=== PATIENT | male | born 1970 | race Caucasian/White ===

== ENCOUNTER → 2016-06-24 | Outpatient (CLI) | payer OTHER ==
[~2016-06-24] MED LIST: BUTACAP10 PO; CETI10TA84 PO; CHOL100041 PO; KPP/1000 PO; LAMO200T38 PO; LEVE500T13 PO; LPT/20 PO; MULT-506 PO; SERT-234 PO; ZLF/100 PO; [UNRECOGNIZED DRUG - CODE] UT
== END | disposition home or self-care (01) ==
LOC: C.LABBFT 12:49
PROVIDERS: ATTEND Psychiatry & Neurology Neurology
DX: G40.909 Epilepsy, unspecified, not intractable, without status epilepticus (principal)

== ENCOUNTER → 2016-09-02 | Outpatient (CLI) | payer OTHER ==
[2016-09-02 17:32] LABS: BASO % 0.5 %; BASO ABS # 0.03 K/uL (0-0.2); COMPLETE YES; EOS % 2.3 %; HEMATOCRIT 44.5 % (42-52); IG% 0.5 %; LYMPH ABS # 1.23 K/uL (1.2-3.4); MEAN CELL VOLUME 86.4 fL (80-100); MEAN CORPUSCULAR HEMOGLOBIN 29.5 pg (25-34); MEAN CORPUSCULAR HGB CONC 34.2 g/dl (32-36); MEAN PLATELET VOLUME 9.9 fL (7.4-10.4); NEUT % 64.7 %; PLATELET COUNT 276 K/uL (130-400); RED BLOOD COUNT 5.15 M/uL (4.7-6.1); WHITE BLOOD COUNT 5.59 K/uL (4.8-10.8)
[2016-09-02 17:46] LABS: ALT/SGPT 29 U/L (12-78); BLOOD UREA NITROGEN 17 mg/dl (7-18); BUN/CREATININE RATIO 19.7 (10-20); CARBON DIOXIDE 31 mmol/L (21-32); CHLORIDE 101 mmol/L (98-107); CHOLESTEROL 207 mg/dl (0-200); CREATININE 0.88 mg/dl (0.60-1.40); GLUCOSE 77 mg/dl (70-99); SODIUM 140 mmol/L (136-145)
[2016-09-02 17:57] LABS: ALB/GLOB RATIO 1.3 (0.9-2); ALKALINE PHOSPHATASE 53 U/L (45-117); AST/SGOT 15 U/L (15-37); CHOLESTEROL/HDL RATIO 4.6; HDL CHOLESTEROL 45 mg/dl; LDL CHOLESTEROL CALCULATED 133 mg/dl; TRIGLYCERIDES 144 mg/dl (0-150); VERY LOW DENSITY LIPOPROT CALC 29 mg/dl
== END | disposition home or self-care (01) ==
LOC: C.LABBFT 11:25
PROVIDERS: ATTEND Physician Assistant
DX: R42 Dizziness and giddiness (principal); E78.5 Hyperlipidemia, unspecified; R26.9 Unspecified abnormalities of gait and mobility; Z51.81 Encounter for therapeutic drug level monitoring; Z79.899 Other long term (current) drug therapy

== ENCOUNTER 2016-11-01 18:35 | Emergency (ER) | payer OTHER ==
[~2016-11-01] VITALS: Ht 177.8 cm; Wt 95.5 kg
[~2016-11-01 18:35] MED LIST changes: -CHOL100041 PO; -LEVE500T13 PO; -SERT-234 PO
[2016-11-01 18:44] VITALS: TEMP 36.8; Ht 177.8 cm; Wt 95.5 kg
[2016-11-01 19:36] VITALS: O2SAT 97
[2016-11-01] MEDS ORDERED: KPP/1000 PO (19:54)
[2016-11-01] MEDS ORDERED: SERT-234 PO (19:56)
[2016-11-01] MEDS ORDERED: LAMO200T38 PO (19:57)
[2016-11-01 20:24] LABS: BASO % 0.1 %; BASO ABS # 0.01 K/uL (0-0.2); COMPLETE YES; EOS % 0.2 %; HEMATOCRIT 43.8 % (42-52); IG% 0.3 %; LYMPH % 8.1 %; LYMPH ABS # 1.19 K/uL (1.2-3.4); MEAN CELL VOLUME 86.2 fL (80-100); MEAN CORPUSCULAR HEMOGLOBIN 29.7 pg (25-34); MEAN CORPUSCULAR HGB CONC 34.5 g/dl (32-36); MEAN PLATELET VOLUME 9.6 fL (7.4-10.4); MONO % 6.3 %; PLATELET COUNT 332 K/uL (130-400); RED BLOOD COUNT 5.08 M/uL (4.7-6.1); WHITE BLOOD COUNT 14.66 K/uL (4.8-10.8)
[2016-11-01 20:32] LABS: INR 1.1 (0.9-1.1); PARTIAL THROMBOPLASTIN RATIO 1.2; PROTHROMBIN TIME (PATIENT) 11.3 SECONDS (9.0-12.0)
[2016-11-01 20:36] LABS: BUN/CREATININE RATIO 12.9 (10-20); CALCIUM 9.2 mg/dl (8.5-10.1); CREATININE 0.93 mg/dl (0.60-1.40)
--- NOTE | 2016-11-01 21:06 | DIAGNOSTIC IMAGING REPORT ---
HEAD CT NONCONTRAST CT DOSE: 687.98 mGy.cm HISTORY: Mental status change SEIZURE TECHNIQUE: Multiaxial CT images of the head were performed without the use of intravenous contrast. Comparison: 04/15/2016 Findings: The paranasal sinuses and mastoid air cells are clear. Findings of a prior right-sided craniotomy are again noted. This is unchanged from the prior exam. Findings of an old right cerebral infarct are again noted. Dystrophic calcifications are stable. There is slight compensatory midline shift to the right. This is unchanged. There is no evidence for new interval or acute finding. There is no evidence for acute intracranial hemorrhage. Impression: Chronic and postoperative change. No acute process. Electronically signed by: Isaiah Earl M.D. 11/01/2016 9:05 PM Dictated Date/Time: 11/01/2016 9:02 PM
[2016-11-01] MEDS ORDERED: LEVETIRACETAM 500 MG TAB PO STA (21:33)
[2016-11-01 22:12] VITALS: BP 135/88; PULSE 82; O2SAT 94
--- NOTE | 2016-11-02 01:42 | EMERGENCY ROOM VISIT NOTE ---
History Report prepared by Giacomo: Jacquelyn Lopez Under the Supervision of: Dr. Gregorio Juarez M.D. First contact with patient: 18:53 Chief Complaint: HEAD INJURY (MINOR) Stated Complaint: 2 SEIZURES LASTNIGHT,SCALP WOUND History of Present Illness The patient is a 45 year old male who presents to the Emergency Room with complaints of multiple seizures starting yesterday evening. Yesterday around 1900 he had his first seizure. The seizure was witnessed by his brother and [id number] and lasted around 2 minutes. They found him on the ground. One hour later, he had another seizure which was longer. His second seizure was around 1999. He has not come back to baseline since then, but he is improving. He does not feel as alert as usual. The patient has no memory of the time between the 2 seizures. The patient believes he might have had a 3rd seizure this morning while he was in bed. He also fell twice today. He was found around 10 seconds after he fell the first time at which time he was not seizing. He injured the back of his head. He fell again later in the day while trying to put on his shoe. The patient reports that his thinking feels slow. He feels fatigued and has a headache. He has a cut on the back of his head. He denies any neck pain, increased unilateral weakness, vomiting, diarrhea, urinary symptoms, chest pain, or SOB. He is unsure if he has a fever. He has a history of seizures and is on Keppra and Lamictal. He denies any missed doses. He denies any recent changes in medications. He did have the levels checked 2 months ago which was normal. He does not have a history of status epilepticus. He has a history of hemorrhagic stroke. He has left sided weakness as a result. He walks with a cane. Source of History: patient, family Onset: yesterday evening Position: other (global) Quality: other (seizure) Timing: other (multiple) Associated Symptoms: + headache, + fatigue, No neck pain, No chest pain, No vomiting, No diarrhea, No urinary symptoms Note: Pt feels thinking is slow. Pt denies increased weakness. Review of Systems See HPI for pertinent positives & negatives. A total of 10 systems reviewed and were otherwise negative. Past Medical & Surgical Medical Problems: (1) Abscess (2) AVM (arteriovenous malformation) brain (3) ICH (intracerebral hemorrhage) (4) Rib fractures (5) Seizure disorder (6) Status post gamma knife treatment (7) Stroke Family History Cancer Diabetes mellitus Gallbladder disease Heart disease Hypertension Kidney disease Kidney stones Lung disease Seizures Social History Smoking Status: Never Smoker Alcohol Use: none Drug Use: none Marital Status: single Housing Status: lives with family Occupation Status: disabled Current/Historical Medications Scheduled Atorvastatin (Atorvastatin Calcium), 20 MG PO DAILY Cetirizine (Zyrtec), 10 MG PO QAM Lamotrigine (Lamictal), 400 MG PO BID Levetiracetam (Keppra), 1,500 MG PO BID Multivitamin (Multivitamin), 1 TAB PO DAILY Sertraline (Zoloft), 100 MG PO QAM Scheduled PRN Vuqsiavgoj-Fqzfjdofezqip-Zsgne (Esgic 325/50/40MG), 1-2 CAP PO Q4H PRN for Severe Headache Clonazepam (Clonazepam Odt), 0.5 MG UT UD PRN for Seizure Allergies Coded Allergies: No Known Allergies (Unverified , 04/15/16) Physical Exam Vital Signs Date Time Temp Pulse Resp B/P (MAP) Pulse Ox O2 Delivery O2 Flow Rate FiO2 11/01/16 22:12 82 20 135/88 94 Room Air 11/01/16 21:55 77 16 90 11/01/16 21:50 76 11/01/16 21:50 77 18 94 11/01/16 21:45 82 13 98 11/01/16 21:40 82 16 93 11/01/16 21:35 77 14 98 11/01/16 21:30 72 13 95 11/01/16 21:25 77 17 98 11/01/16 21:20 78 18 94 11/01/16 21:15 82 13 11/01/16 21:10 73 14 98 11/01/16 21:05 74 15 95 11/01/16 21:00 76 21 98 11/01/16 20:56 114/77 11/01/16 20:10 82 19 11/01/16 20:05 81 17 11/01/16 20:00 81 15 11/01/16 19:55 83 15 11/01/16 19:50 86 16 11/01/16 19:45 87 18 11/01/16 19:40 84 16 11/01/16 19:36 97 Room Air 11/01/16 19:34 84 11/01/16 18:44 36.8 89 16 125/77 96 Room Air Physical Exam Constitutional: Vital signs reviewed. Eyes: Disconjugate gaze. Pupils are equal round reactive to light. Conjunctiva are noninjected. ENT: Pharynx is clear without erythema or exudate. Mucous membranes are moist. Neck supple without meningeal signs. No midline tenderness to the cervical spine. Respiratory: Clear to auscultation bilaterally. Breath sounds are equal bilaterally. Cardiovascular: Regular rate and rhythm. No rubs or gallops. GI: Soft, nondistended and nontender. Bowel sounds are present. Musculoskeletal: No peripheral edema. No lower extremity tenderness. Integumentary: No cyanosis. 3 cm nonlinear scalp laceration to the occiput. Neurological: The patient is awake and alert. 3/5 strength in left upper extremity, 4/5 strength in left lower extremity, 5/5 on right side. Sensation is intact to light touch all extremities. Left facial weakness. Normal speech. GCS of 14. Psychiatric: Normal affect. Medical Decision & Procedures ER Provider Diagnostic Interpretation: Radiology results as stated below per my review and the radiologist's interpretation: HEAD CT NONCONTRAST CT DOSE: 687.98 mGy.cm HISTORY: Mental status change SEIZURE TECHNIQUE: Multiaxial CT images of the head were performed without the use of intravenous contrast. Comparison: 04/15/2016 Findings: The paranasal sinuses and mastoid air cells are clear. Findings of a prior right-sided craniotomy are again noted. This is unchanged from the prior exam. Findings of an old right cerebral infarct are again noted. Dystrophic calcifications are stable. There is slight compensatory midline shift to the right. This is unchanged. There is no evidence for new interval or acute finding. There is no evidence for acute intracranial hemorrhage. Impression: Chronic and postoperative change. No acute process. Electronically signed by: Isaiah Earl M.D. 11/01/2016 9:05 PM Dictated Date/Time: 11/01/2016 9:02 PM Laboratory Results 11/01/16 20:10 Red Blood Count 5.08, Mean Corpuscular Volume 86.2, Mean Corpuscular Hemoglobin 29.7, Mean Corpuscular Hemoglobin Concent 34.5, Mean Platelet Volume 9.6, Neutrophils (%) (Auto) 85.0, Lymphocytes (%) (Auto) 8.1, Monocytes (%) (Auto) 6.3, Eosinophils (%) (Auto) 0.2, Basophils (%) (Auto) 0.1, Neutrophils # (Auto) 12.45, Lymphocytes # (Auto) 1.19, Monocytes # (Auto) 0.93, Eosinophils # (Auto) 0.03, Basophils # (Auto) 0.01 11/01/16 20:10 Test 11/01/16 20:10 White Blood Count 14.66 K/uL (4.8-10.8) Red Blood Count 5.08 M/uL (4.7-6.1) Hemoglobin 15.1 g/dL (14.0-18.0) Hematocrit 43.8 % (42-52) Mean Corpuscular Volume 86.2 fL (80-100) Mean Corpuscular Hemoglobin 29.7 pg (25-34) Mean Corpuscular Hemoglobin Concent 34.5 g/dl (32-36) Platelet Count 332 K/uL (130-400) Mean Platelet Volume 9.6 fL (7.4-10.4) Neutrophils (%) (Auto) 85.0 % Lymphocytes (%) (Auto) 8.1 % Monocytes (%) (Auto) 6.3 % Eosinophils (%) (Auto) 0.2 % Basophils (%) (Auto) 0.1 % Neutrophils # (Auto) 12.45 K/uL (1.4-6.5) Lymphocytes # (Auto) 1.19 K/uL (1.2-3.4) Monocytes # (Auto) 0.93 K/uL (0.11-0.59) Eosinophils # (Auto) 0.03 K/uL (0-0.5) Basophils # (Auto) 0.01 K/uL (0-0.2) RDW Standard Deviation 41.2 fL (36.4-46.3) RDW Coefficient of Variation 13.1 % (11.5-14.5) Immature Granulocyte % (Auto) 0.3 % Immature Granulocyte # (Auto) 0.05 K/uL (0.00-0.02) Prothrombin Time 11.3 SECONDS (9.0-12.0) Prothromb Time International Ratio 1.1 (0.9-1.1) Activated Partial Thromboplast Time 31.6 SECONDS (21.0-31.0) Partial Thromboplastin Ratio 1.2 Anion Gap 8.0 mmol/L (3-11) Est Creatinine Clear Calc Drug Dose 117.6 ml/min Estimated GFR () 115.3 Estimated GFR (Non- 99.5 BUN/Creatinine Ratio 12.9 (10-20) Calcium Level 9.2 mg/dl (8.5-10.1) Laboratory results as reviewed by me. Medications Administered Medications (Trade) Dose Ordered Sig/Karen Route Start Time Stop Time Status Last Admin Dose Admin Levetiracetam (Keppra Tab) 2,000 mg ONE STAT PO 11/01/16 21:33 11/01/16 21:35 DC 11/01/16 22:07 2,000 MG Lamotrigine (Lamictal Tab) 400 mg NOW STAT PO 11/01/16 21:33 11/01/16 21:35 DC 11/01/16 22:07 400 MG ED Course 1855: The patient was evaluated in room C1. A complete history and physical exam was performed. 2112: I reevaluated the patient. The wound in very superficial and requires no sutures. 2126: I discussed the patient's case with Dr. Casanova, [facility] [place] - neurology. She recommends increasing Keppra dose to 2000 BID. She does not feel admission is necessary at this time unless the patient is far from baseline. The decision can be left up to the patient and his family. 2130: I reevaluated the patient. The brother and [id number] say that the patient has almost returned to baseline over the time he was here. He is rapidly improving. They are all comfortable with going home. I discussed the results and treatment plan with them. They verbalized understanding and agreement. He will be given his medications today as he has not yet taken them. He will follow up with Dr. Mays and his PCP. He will be discharged home. 2132: Lamotrigine 400 mg PO, Levetiracetam 2000 mg PO. Medical Decision This is a 45-year-old male who presents with multiple seizures. Differential diagnosis includes breakthrough seizures, status epilepticus, intracranial hemorrhage, metabolic derangement, medication non-compliance, skull fracture. I did perform a limited focused review of portions of the patient's old chart on the electronic medical record. The patient overdosed in March 2016 on Fioricet and Tylenol. He has a history of AVM s/p surgery, CVA, seizure, and migraines. He had therapeutic Keppra and Lamictal levels on September 02. Medication Reconciliation: I attest that I have personally reviewed the patient' s current medication list. Blood Pressure Screening: Patient was found to have an elevated blood pressure and was referred to their primary doctor for recheck and further treatment. I did evaluate the patient as noted above. I did obtain history from the patient as well as his brother and [id number]. The patient is presenting with 2 breakthrough seizures yesterday. He also possibly had a seizure disorder and fell later in the day while trying to put his shoes on. He did have a head injury and has a laceration to the back of his head. The laceration is very superficial and does not require suturing. IV access was established. The patient was placed on a continuous rate examiner. I did order and review the patient's blood work as noted in the electronic medical record. His white blood cell count is elevated but he did have seizures recently. He denies any fever. I did order a CT of the head. I did review the images myself as well as the radiology report as described above. There is no evidence of intracranial hemorrhage or acute process. I did discuss the test results with the patient and his family. I did discuss the case with Dr. Cassidy of neurology. She recommended increasing his Keppra to 2000 mg twice a day. She felt that the patient felt comfortable that he does not require any hospitalization. I did discussed the plan with the patient and his family. I feel that he is almost back at his baseline at this time and he feels well enough to go home. He was given Keppra 2000 mg here as well as his Lamictal dose. He will follow up with his doctor and neurologist. Consults Time Called: 2123 Consulting Physician: Dr. Casanova, [facility] [place] - neurology Returned Call: [phone] I discussed the patient's case with her. She recommends increasing Keppra dose to 2000 BID. She does not feel admission is necessary at this time unless the patient is far from baseline. The decision can be left up to the patient and his family. Impression Primary Impression: Seizures Additional Impression: Acute head injury Scribe Attestation The scribe's documentation has been prepared under my direct and personally reviewed by me in its entirety. I confirm that the note above accurately reflects all work, treatment, procedures, and medical decision making performed by me. Departure Information Dispostion Home / Self-Care Referrals RV. Lopez MD (PCP) Forms HOME CARE DOCUMENTATION FORM, IMPORTANT VISIT INFORMATION Patient Instructions ED Head Injury Closed, My [facility], Seizures - [facility] Additional Instructions You have been examined and treated today on an emergency basis only. This is not a substitute for, or an effort to provide, complete comprehensive medical care. It is impossible to recognize and treat all injuries or illnesses in a single emergency department visit. It is therefore important that you follow up closely with your physician and neurologist. Call as soon as possible for an appointment. Return for worsening symptoms or if you develop fever, vomiting, new numbness or weakness on one side of your body, difficulties with your speech , or any other concerning symptoms. Increase your Lamictal to 2000 mg twice a day Problem Qualifiers Additional Impression: Acute head injury Encounter type: initial encounter Qualified Codes: S09.90XA - Unspecified injury of head, initial encounter
[2016-11-22] MEDS ORDERED: CETI10TA84 PO (11:47)
[2016-11-22] MEDS ORDERED: LEVE500T13 PO (11:51)
[2016-11-22] MEDS ORDERED: CHOL100041 PO (11:51)
[2016-11-22] MEDS ORDERED: ZLF/100 PO (11:51)
[2016-11-22] MEDS ORDERED: [UNRECOGNIZED DRUG - CODE] UT (11:51)
[2016-11-22] MEDS ORDERED: LPT/20 PO (11:51)
[2016-11-22] MEDS ORDERED: LAMO200T38 PO (11:51)
[2016-11-22] MEDS ORDERED: MULT-506 PO (11:51)
== END 2016-11-01 22:30 | disposition home or self-care (01) ==
LOC: C.EDB 18:36 → C.EDC 22:30
DX: G40.909 Epilepsy, unspecified, not intractable, without status epilepticus (principal); S01.01XA Laceration without foreign body of scalp, initial encounter; W19.XXXA Unspecified fall, initial encounter; I69.354 Hemiplegia and hemiparesis following cerebral infarction affecting left non-dominant side; Z80.9 Family history of malignant neoplasm, unspecified; Z83.3 Family history of diabetes mellitus; Z82.49 Family history of ischemic heart disease and other diseases of the circulatory system; Z84.1 Family history of disorders of kidney and ureter; Z82.0 Family history of epilepsy and other diseases of the nervous system; Z79.899 Other long term (current) drug therapy

== ENCOUNTER 2016-11-06 13:08 | Inpatient (IN) | payer OTHER ==
[~2016-11-06] VITALS: Ht 177.8 cm; Wt 95.5 kg
[~2016-11-06 13:08] MED LIST changes: +SERT-234 PO; -ZLF/100 PO
[2016-11-06 14:07] LABS: BASO % 0.4 %; BASO ABS # 0.03 K/uL (0-0.2); COMPLETE YES; EOS % 1.2 %; HEMATOCRIT 44.4 % (42-52); IG% 0.6 %; LYMPH % 14.7 %; LYMPH ABS # 1.24 K/uL (1.2-3.4); MEAN CELL VOLUME 86.7 fL (80-100); MEAN CORPUSCULAR HEMOGLOBIN 30.1 pg (25-34); MEAN CORPUSCULAR HGB CONC 34.7 g/dl (32-36); MEAN PLATELET VOLUME 9.5 fL (7.4-10.4); MONO % 8.3 %; NEUT % 74.8 %; PLATELET COUNT 311 K/uL (130-400); RED BLOOD COUNT 5.12 M/uL (4.7-6.1); WHITE BLOOD COUNT 8.43 K/uL (4.8-10.8)
[2016-11-06] MEDS ORDERED: CHOL100041 PO (14:21)
[2016-11-06 14:26] LABS: ALT/SGPT 51 U/L (12-78); AST/SGOT 33 U/L (15-37); BLOOD UREA NITROGEN 14 mg/dl (7-18); BUN/CREATININE RATIO 15.2 (10-20); CALCIUM 9.4 mg/dl (8.5-10.1); CARBON DIOXIDE 29 mmol/L (21-32); CHLORIDE 105 mmol/L (98-107); CREATININE 0.89 mg/dl (0.60-1.40); GLUCOSE 101 mg/dl (70-99); POTASSIUM 4.1 mmol/L (3.5-5.1); SODIUM 144 mmol/L (136-145)
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
[2016-11-06 14:36] LABS: ALB/GLOB RATIO 1.1 (0.9-2); ALKALINE PHOSPHATASE 53 U/L (45-117)
[2016-11-06 14:39] LABS: ACETAMINOPHEN < 2 ug/ml (10-30)
--- NOTE | 2016-11-06 14:53 | DIAGNOSTIC IMAGING REPORT ---
CT OF THE HEAD WITHOUT CONTRAST CLINICAL HISTORY: Posterior head injury. Headache. COMPARISON STUDY: Head CT November 01, 2016. CT DOSE: 698.73 mGy.cm TECHNIQUE: Helical axial images of the head were obtained without IV contrast. Automated exposure control was utilized for the study. FINDINGS: Note is again made of a right-sided temporoparietal craniotomy. Postoperative appearance is unchanged. Extensive encephalomalacia within the right MCA territory with multifocal parenchymal calcifications remains unchanged. There is volume loss as expected. Ventricular system is stable. Basilar cisterns are patent. There are no extra-axial collections. There are no findings to suggest acute dural sinus thrombosis or acute territorial infarct. The appearance of the brain is unchanged. There is no calvarial fracture. Visualized portions of the sinuses and mastoid air cells are clear. IMPRESSION: 1. No acute intracranial findings. 2. No change since prior exam status post right temporoparietal craniotomy with large right MCA territory infarct and associated parenchymal calcifications. Electronically signed by: Ghassan Rangel M.D. 11/06/2016 2:52 PM Dictated Date/Time: 11/06/2016 2:47 PM
[2016-11-06 15:18] LABS: URINE APPEARANCE CLEAR (CLEAR); URINE COLOR DK YELLOW; URINE EPITHELIAL CELL AUTO 20-30 /lpf (0-5); URINE NITRITE NEG (NEG); URINE PH 5.5 (4.5-7.5); URINE SPECIFIC GRAVITY 1.039 (1.000-1.030); UROBILINOGEN NEG (NEG); ZZUR CULT IF INDIC CLEAN CATCH NO
[2016-11-06 15:31] LABS: MANUAL MICROSCOPIC REQUIRED? NO; REVIEW REQ? NO
[2016-11-06 15:32] LABS: URINE BILIRUBIN NEG (NEG)
[2016-11-06 15:36] LABS: BENZODIAZEPINE, URINE POS (NEG); COCAINE,URINE NEG (NEG); PHENCYCLIDINE, URINE NEG (NEG)
[2016-11-06] MEDS ORDERED: ATORVASTATIN 20 MG TAB PO ONE (18:00)
[2016-11-06] MEDS ORDERED: LEVETIRACETAM 500 MG TAB PO ONE (18:00)
[2016-11-07] MEDS ORDERED: ACETAMINOPHEN 500 MG TAB PO STA (00:24)
[2016-11-07] MEDS ORDERED: CLONAZEPAM 0.5 MG TAB PO STA (00:24)
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
--- NOTE | 2016-11-07 06:40 | EMERGENCY ROOM VISIT NOTE ---
ED Visit Note Patient awaiting placement reportedly is possibility of admission under 201 at the hospital. 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
[2016-11-07] MEDS ORDERED: LEVETIRACETAM 500 MG TAB PO ONE (08:45)
[2016-11-07] MEDS ORDERED: ATORVASTATIN 20 MG TAB PO ONE (08:45)
[2016-11-07] MEDS ORDERED: SERTRALINE HCL 100 MG TAB PO ONE (08:45)
--- NOTE | 2016-11-07 09:39 | EMERGENCY ROOM VISIT NOTE ---
ED Visit Note 45-year-old male with mental health issues was signed off to me at change of shift from Dr. Vallejo. I reevaluated the patient at 09:30. The patient remains depressed but states that he is currently not suicidal. He is concerned that he may be suicidal if he returns home. We await bed placement.
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
[2016-11-07] MEDS ORDERED: NURSING VERBAL MED ORDER SCH (16:15)
[2016-11-07 17:07] VITALS: O2SAT 95
[2016-11-07] MEDS ORDERED: NURSING VERBAL MED ORDER ONE (17:30)
[2016-11-07] MEDS ORDERED: MAGNESIUM HYDROXIDE SUSP 30 ML UDC PO PRN (18:00)
[2016-11-07] MEDS ORDERED: SODIUM CHLORIDE 0.65% NA SOLN 45 ML (OCEAN) PRN (18:00)
[2016-11-07] MEDS ORDERED: ALUMINUM/MAGNESIUM SUSP 30 ML UDC PO PRN (18:00)
[2016-11-07 18:56] VITALS: BP 139/76; PULSE 73; TEMP 37.1; Ht 177.8 cm; Wt 95.5 kg
[2016-11-07] MEDS: LEVETIRACETAM 500 MG TAB PO SCH (21:20)
[2016-11-07] MEDS: hydrOXYzine HCL 25 MG TAB PO PRN (21:23)
[2016-11-08 06:54] VITALS: BP_SYST 123; BP_SYST 125; BP_DIAS 72; PULSE 62; PULSE 71; TEMP 36.3
[2016-11-08] MEDS: LEVETIRACETAM 500 MG TAB PO SCH ×2 (08:22→21:31)
[2016-11-08] MEDS: MULTIVITAMIN TAB PO SCH (08:23)
[2016-11-08] MEDS: ATORVASTATIN 20 MG TAB PO SCH (08:23)
[2016-11-08] MEDS: CETIRIZINE HCL 10 MG TAB PO SCH (08:23)
[2016-11-08] MEDS ORDERED: SERTRALINE HCL 100 MG TAB PO SCH (09:00)
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
[2016-11-08] MEDS ORDERED: CLONAZEPAM 0.5 MG TAB PO PRN (13:15)
[2016-11-08] MEDS: hydrOXYzine HCL 25 MG TAB PO PRN ×2 (21:33→22:47)
[2016-11-08] MEDS: ACETAMINOPHEN 325 MG TAB PO PRN (21:39)
[2016-11-09 06:49] VITALS: BP_SYST 130; BP_SYST 132; BP_DIAS 82; BP_DIAS 84; PULSE 60; PULSE 64; TEMP 36.4
[2016-11-09] MEDS: LEVETIRACETAM 500 MG TAB PO SCH ×2 (08:04→21:40)
[2016-11-09] MEDS: ATORVASTATIN 20 MG TAB PO SCH (08:04)
[2016-11-09] MEDS: MULTIVITAMIN TAB PO SCH (08:05)
[2016-11-09] MEDS: SERTRALINE HCL 100 MG TAB PO SCH (08:05)
[2016-11-09] MEDS: CETIRIZINE HCL 10 MG TAB PO SCH (08:06)
[2016-11-09] MEDS: hydrOXYzine HCL 25 MG TAB PO PRN ×3 (12:40→23:08)
[2016-11-09] MEDS: ACETAMINOPHEN 325 MG TAB PO PRN (12:42)
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
[2016-11-10 06:58] VITALS: BP_SYST 124; BP_SYST 131; BP_DIAS 81; BP_DIAS 83; PULSE 67; PULSE 68; TEMP 36.9
[2016-11-10] MEDS: SERTRALINE HCL 100 MG TAB PO SCH (08:54)
[2016-11-10] MEDS: LEVETIRACETAM 500 MG TAB PO SCH ×2 (08:54→21:30)
[2016-11-10] MEDS: MULTIVITAMIN TAB PO SCH (08:54)
[2016-11-10] MEDS: ATORVASTATIN 20 MG TAB PO SCH (08:54)
[2016-11-10] MEDS: CETIRIZINE HCL 10 MG TAB PO SCH (08:55)
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
[2016-11-10 13:47] LABS: HYDROXYETHYLFLURAZEPAM CONF NEGATIVE NG/ML (CUTOFF=50); HYDROXYMIDAZOLAM NEGATIVE NG/ML (CUTOFF=50); HYDROXYTRIAZOLAM CONF NEGATIVE NG/ML (CUTOFF=50); TEMAZEPAM CONF NEGATIVE NG/ML (CUTOFF=50)
[2016-11-10] MEDS: hydrOXYzine HCL 25 MG TAB PO PRN (23:07)
[2016-11-11 06:53] VITALS: BP_SYST 124; BP_SYST 126; BP_DIAS 81; BP_DIAS 85; PULSE 67; PULSE 68; TEMP 36.9
[2016-11-11] MEDS: ATORVASTATIN 20 MG TAB PO SCH (08:33)
[2016-11-11] MEDS: CETIRIZINE HCL 10 MG TAB PO SCH (08:33)
[2016-11-11] MEDS: MULTIVITAMIN TAB PO SCH (08:33)
[2016-11-11] MEDS: LEVETIRACETAM 500 MG TAB PO SCH ×2 (08:33→20:47)
[2016-11-11] MEDS: SERTRALINE HCL 100 MG TAB PO SCH (08:33)
[2016-11-11] MEDS: ACETAMINOPHEN 325 MG TAB PO PRN (12:44)
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
[2016-11-11] MEDS: hydrOXYzine HCL 25 MG TAB PO PRN (22:12)
[2016-11-12 06:59] VITALS: BP_SYST 121; BP_SYST 126; BP_DIAS 78; BP_DIAS 85; PULSE 67; PULSE 68; TEMP 36.9
[2016-11-12] MEDS: ATORVASTATIN 20 MG TAB PO SCH (08:46)
[2016-11-12] MEDS: CETIRIZINE HCL 10 MG TAB PO SCH (08:46)
[2016-11-12] MEDS: LEVETIRACETAM 500 MG TAB PO SCH ×2 (08:46→22:01)
[2016-11-12] MEDS: SERTRALINE HCL 100 MG TAB PO SCH (08:46)
[2016-11-12] MEDS: MULTIVITAMIN TAB PO SCH (08:46)
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
[2016-11-12] MEDS: hydrOXYzine HCL 25 MG TAB PO PRN (23:05)
[2016-11-13 07:08] VITALS: BP_SYST 109; BP_SYST 114; BP_DIAS 73; BP_DIAS 77; PULSE 63; PULSE 69; TEMP 36.2
[2016-11-13] MEDS: ACETAMINOPHEN 325 MG TAB PO PRN (09:45)
[2016-11-13] MEDS: LEVETIRACETAM 500 MG TAB PO SCH ×2 (09:45→21:36)
[2016-11-13] MEDS: CETIRIZINE HCL 10 MG TAB PO SCH (09:47)
[2016-11-13] MEDS: ATORVASTATIN 20 MG TAB PO SCH (09:47)
[2016-11-13] MEDS: SERTRALINE HCL 100 MG TAB PO SCH (09:48)
[2016-11-13] MEDS: MULTIVITAMIN TAB PO SCH (09:48)
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
[2016-11-13] MEDS ORDERED: BUTALBITAL/ACETAMIN/CAFFEINE TAB PO PRN (15:30)
[2016-11-13] MEDS: hydrOXYzine HCL 25 MG TAB PO PRN (21:42)
[2016-11-14 07:00] VITALS: BP_SYST 115; BP_SYST 127; BP_DIAS 71; BP_DIAS 79; PULSE 57; PULSE 66; TEMP 36.5
[2016-11-14] MEDS: LEVETIRACETAM 500 MG TAB PO SCH ×2 (09:00→22:14)
[2016-11-14] MEDS: MULTIVITAMIN TAB PO SCH (09:02)
[2016-11-14] MEDS: ATORVASTATIN 20 MG TAB PO SCH (09:02)
[2016-11-14] MEDS: SERTRALINE HCL 100 MG TAB PO SCH (09:03)
[2016-11-14] MEDS: CETIRIZINE HCL 10 MG TAB PO SCH (09:03)
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
[2016-11-14] MEDS: hydrOXYzine HCL 25 MG TAB PO PRN ×2 (19:58→22:14)
[2016-11-15 06:57] VITALS: BP_SYST 116; BP_SYST 119; BP_DIAS 68; BP_DIAS 75; PULSE 63; PULSE 71; TEMP 36.5
[2016-11-15] MEDS: CETIRIZINE HCL 10 MG TAB PO SCH (09:31)
[2016-11-15] MEDS: MULTIVITAMIN TAB PO SCH (09:31)
[2016-11-15] MEDS: LEVETIRACETAM 500 MG TAB PO SCH ×2 (09:32→21:44)
[2016-11-15] MEDS: SERTRALINE HCL 100 MG TAB PO SCH (09:32)
[2016-11-15] MEDS: ATORVASTATIN 20 MG TAB PO SCH (09:32)
[2016-11-15] MEDS: ACETAMINOPHEN 325 MG TAB PO PRN (11:12)
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
[2016-11-15] MEDS: hydrOXYzine HCL 25 MG TAB PO PRN ×2 (15:46→22:13)
[2016-11-16 06:43] VITALS: BP_SYST 114; BP_SYST 127; BP_DIAS 73; BP_DIAS 88; PULSE 60; PULSE 72; TEMP 36.5
[2016-11-16] MEDS: LEVETIRACETAM 500 MG TAB PO SCH ×2 (08:46→22:00)
[2016-11-16] MEDS: ATORVASTATIN 20 MG TAB PO SCH (08:46)
[2016-11-16] MEDS: MULTIVITAMIN TAB PO SCH (08:46)
[2016-11-16] MEDS: CETIRIZINE HCL 10 MG TAB PO SCH (08:47)
[2016-11-16] MEDS: SERTRALINE HCL 100 MG TAB PO SCH (08:47)
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
[2016-11-16] MEDS: ACETAMINOPHEN 325 MG TAB PO PRN (11:02)
[2016-11-16] MEDS: hydrOXYzine HCL 25 MG TAB PO PRN ×2 (15:52→22:01)
[2016-11-16] MEDS: BISMUTH SUBSALICYLATE PER ML OMNICELL CHARGE PO PRN (15:55)
[2016-11-17 06:44] VITALS: BP_SYST 117; BP_SYST 126; BP_DIAS 73; BP_DIAS 81; PULSE 6; PULSE 80; TEMP 36.9
[2016-11-17] MEDS: ATORVASTATIN 20 MG TAB PO SCH (08:20)
[2016-11-17] MEDS: SERTRALINE HCL 100 MG TAB PO SCH (08:20)
[2016-11-17] MEDS: LEVETIRACETAM 500 MG TAB PO SCH ×2 (08:20→21:49)
[2016-11-17] MEDS: MULTIVITAMIN TAB PO SCH (08:20)
[2016-11-17] MEDS: CETIRIZINE HCL 10 MG TAB PO SCH (08:21)
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
[2016-11-17] MEDS: ACETAMINOPHEN 325 MG TAB PO PRN (14:02)
[2016-11-17] MEDS: BISMUTH SUBSALICYLATE PER ML OMNICELL CHARGE PO PRN ×2 (15:39→21:48)
[2016-11-17] MEDS: hydrOXYzine HCL 25 MG TAB PO PRN ×2 (15:39→21:49)
[2016-11-18 06:52] VITALS: BP_SYST 113; BP_SYST 131; BP_DIAS 73; BP_DIAS 76; PULSE 63; PULSE 78; TEMP 36.6
[2016-11-18] MEDS: LEVETIRACETAM 500 MG TAB PO SCH ×2 (07:29→21:45)
[2016-11-18] MEDS: SERTRALINE HCL 100 MG TAB PO SCH (07:30)
[2016-11-18] MEDS: CETIRIZINE HCL 10 MG TAB PO SCH (07:30)
[2016-11-18] MEDS: MULTIVITAMIN TAB PO SCH (07:30)
[2016-11-18] MEDS: ATORVASTATIN 20 MG TAB PO SCH (07:30)
[2016-11-18] MEDS: BISMUTH SUBSALICYLATE PER ML OMNICELL CHARGE PO PRN (10:08)
[2016-11-18] MEDS: ACETAMINOPHEN 325 MG TAB PO PRN (12:12)
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
[2016-11-19 06:57] VITALS: BP_SYST 116; BP_SYST 123; BP_DIAS 78; BP_DIAS 82; PULSE 64; PULSE 69; TEMP 36.4
[2016-11-19] MEDS: LEVETIRACETAM 500 MG TAB PO SCH ×2 (08:40→21:36)
[2016-11-19] MEDS: MULTIVITAMIN TAB PO SCH (08:40)
[2016-11-19] MEDS: ATORVASTATIN 20 MG TAB PO SCH (08:40)
[2016-11-19] MEDS: SERTRALINE HCL 100 MG TAB PO SCH (08:41)
[2016-11-19] MEDS: CETIRIZINE HCL 10 MG TAB PO SCH (08:41)
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
[2016-11-19] MEDS: ACETAMINOPHEN 325 MG TAB PO PRN ×2 (15:33→22:54)
[2016-11-19] MEDS: hydrOXYzine HCL 25 MG TAB PO PRN (22:54)
[2016-11-20 07:03] VITALS: BP_SYST 125; BP_DIAS 80; BP_DIAS 81; PULSE 66; PULSE 67; TEMP 36.5
[2016-11-20] MEDS: LEVETIRACETAM 500 MG TAB PO SCH ×2 (09:09→20:58)
[2016-11-20] MEDS: ATORVASTATIN 20 MG TAB PO SCH (09:10)
[2016-11-20] MEDS: MULTIVITAMIN TAB PO SCH (09:10)
[2016-11-20] MEDS: CETIRIZINE HCL 10 MG TAB PO SCH (09:11)
[2016-11-20] MEDS: SERTRALINE HCL 100 MG TAB PO SCH (09:11)
[2016-11-20] MEDS: ACETAMINOPHEN 325 MG TAB PO PRN ×2 (09:13→22:09)
--- NOTE | 2016-11-20 10:33 | Psych Management Progress Note ---
Psychiatry Miscellaneous Date of Service: Nov 20, 2016. Patient seen, MS assessed. Rates mood as low and identifies need for self confident. Is exploring personal residential with staff. Cooperative with care and treatment plan as outlined by AUTO SERVICE ADVISOR. Appeared much brighter outside of group.
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
[2016-11-20] MEDS: hydrOXYzine HCL 25 MG TAB PO PRN (20:59)
[2016-11-21 06:55] VITALS: BP_SYST 122; BP_SYST 123; BP_DIAS 80; PULSE 58; PULSE 61; TEMP 36.7
[2016-11-21] MEDS: LEVETIRACETAM 500 MG TAB PO SCH ×2 (08:38→21:11)
[2016-11-21] MEDS: ATORVASTATIN 20 MG TAB PO SCH (08:41)
[2016-11-21] MEDS: MULTIVITAMIN TAB PO SCH (08:42)
[2016-11-21] MEDS: SERTRALINE HCL 100 MG TAB PO SCH (08:43)
[2016-11-21] MEDS: CETIRIZINE HCL 10 MG TAB PO SCH (08:43)
[2016-11-21] MEDS: ACETAMINOPHEN 325 MG TAB PO PRN (10:39)
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
[2016-11-21] MEDS: hydrOXYzine HCL 25 MG TAB PO PRN (21:48)
[2016-11-22] MEDS: ACETAMINOPHEN 325 MG TAB PO PRN ×2 (05:34→14:56)
[2016-11-22 06:55] VITALS: BP_SYST 121; BP_SYST 126; BP_DIAS 84; BP_DIAS 87; PULSE 55; PULSE 57; TEMP 36.6
[2016-11-22] MEDS: MULTIVITAMIN TAB PO SCH (08:36)
[2016-11-22] MEDS: ATORVASTATIN 20 MG TAB PO SCH (08:36)
[2016-11-22] MEDS: SERTRALINE HCL 100 MG TAB PO SCH (08:37)
[2016-11-22] MEDS: CETIRIZINE HCL 10 MG TAB PO SCH (08:37)
[2016-11-22] MEDS: LEVETIRACETAM 500 MG TAB PO SCH ×2 (08:37→21:44)
[2016-11-22] MEDS ORDERED: CETI10TA84 PO (11:47)
[2016-11-22] MEDS ORDERED: [UNRECOGNIZED DRUG - CODE] UT (11:51)
[2016-11-22] MEDS ORDERED: CHOL100041 PO (11:51)
[2016-11-22] MEDS ORDERED: LPT/20 PO (11:51)
[2016-11-22] MEDS ORDERED: ZLF/100 PO (11:51)
[2016-11-22] MEDS ORDERED: LAMO200T38 PO (11:51)
[2016-11-22] MEDS ORDERED: LEVE500T13 PO (11:51)
[2016-11-22] MEDS ORDERED: MULT-506 PO (11:51)
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
[2016-11-22] MEDS: BISMUTH SUBSALICYLATE PER ML OMNICELL CHARGE PO PRN (19:15)
[2016-11-22] MEDS: hydrOXYzine HCL 25 MG TAB PO PRN (21:46)
[2016-11-23 06:55] VITALS: BP_SYST 118; BP_SYST 120; BP_DIAS 77; BP_DIAS 79; PULSE 62; PULSE 82; TEMP 36.6
[2016-11-23] MEDS: LEVETIRACETAM 500 MG TAB PO SCH (08:17)
[2016-11-23] MEDS: MULTIVITAMIN TAB PO SCH (08:17)
[2016-11-23] MEDS: SERTRALINE HCL 100 MG TAB PO SCH (08:17)
[2016-11-23] MEDS: ATORVASTATIN 20 MG TAB PO SCH (08:17)
[2016-11-23] MEDS: CETIRIZINE HCL 10 MG TAB PO SCH (08:18)
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
== END 2016-11-23 12:10 | disposition home or self-care (01) | DRG 885 ==
LOC: C.EDB 13:10 → ENRESERV 11-07 16:20 → C.MHU 11-07 17:15
PROVIDERS: ADMIT Psychiatry & Neurology Psychiatry; ATTEND Psychiatry & Neurology Psychiatry
DX: F33.2 Major depressive disorder, recurrent severe without psychotic features (principal); Q28.2 Arteriovenous malformation of cerebral vessels; I69.954 Hemiplegia and hemiparesis following unspecified cerebrovascular disease affecting left non-dominant side; T14.91 Suicide attempt; T42.3X2A Poisoning by barbiturates, intentional self-harm, initial encounter; S50.02XA Contusion of left elbow, initial encounter; S40.012A Contusion of left shoulder, initial encounter; T39.1X2A Poisoning by 4-Aminophenol derivatives, intentional self-harm, initial encounter; W19.XXXA Unspecified fall, initial encounter; X58.XXXA Exposure to other specified factors, initial encounter; G40.909 Epilepsy, unspecified, not intractable, without status epilepticus; G43.909 Migraine, unspecified, not intractable, without status migrainosus; Z87.820 Personal history of traumatic brain injury; Z91.411 Personal history of adult psychological abuse; Z86.79 Personal history of other diseases of the circulatory system; Z81.8 Family history of other mental and behavioral disorders; Z79.899 Other long term (current) drug therapy